=== PATIENT | female | born 1980 | race African-American/Black ===

== ENCOUNTER → 2017-07-18 | Outpatient (CLI) | payer OTHER | END | disposition home or self-care (01) | LOC: KCIC 10:50 | DX: M25.561 Pain in right knee (principal) | CPT/HCPCS: 73562 ==

== ENCOUNTER 2017-09-19 12:48 | Emergency (ER) | payer OTHER ==
[2017-09-19 13:43] LABS: URINE HCG POC HCG NEGATIVE (Negative)
[2017-09-19 13:49] LABS: BILIRUBIN,URINE NEGATIVE (NEG); CLARITY,URINE CLEAR; COLOR,URINE YELLOW; GLUCOSE,URINE NEGATIVE (NEG); NITRITE,URINE NEGATIVE (NEG); PH,URINE 6.5; PROTEIN,URINE NEGATIVE (NEG-TRACE)
[2017-09-19 14:03] LABS: RBC,URINE OCC /HPF (0-2); WBC,URINE RARE /HPF (0-4)
[2017-09-19 14:04] LABS: BACTERIA,URINE FEW /HPF (0-FEW); SQUAMOUS EPITHELIAL CELL,UR FEW /LPF
== END 2017-09-19 14:20 | disposition home or self-care (01) ==
LOC: ER 12:48
DX: M54.5 Low back pain (principal); I10 Essential (primary) hypertension; Z98.890 Other specified postprocedural states
CPT/HCPCS: 81001; 81025; 99283

== ENCOUNTER 2018-04-03 18:26 | Emergency (ER) | payer BC, OTHER ==
[~2018-04-03] VITALS: Ht 172.7 cm; Wt 104.3 kg
[~2018-04-03 18:26] MED LIST: CYCL10TA2 PO; LABE100T5 PO; PRED1TAB3 PO
[2018-04-03 18:44] VITALS: BP 138/79
[2018-04-03] MEDS ORDERED: IBUP-1060 PO (19:06)
[2018-04-03] MEDS ORDERED: CYCL10TA2 PO (19:06)
--- NOTE | 2018-04-03 19:07 | PHYS DOC ---
Past Medical History Past Medical History: Hypertension Additional Past Medical Histor: THYROID MASS Past Surgical History: Alcohol Use: Occasionally Drug Use: None Adult General Chief Complaint Chief Complaint: BACK PAIN OR INJURY HPI HPI Patient is a 37 year old AA female who presents to the emergency room with complaints of left hip and left low back pain after a fall that occurred 6 days ago after she slipped on some ice. Patient denies any decreased range of motion , numbness, tingling, or weakness of the affected extremity. She states that the pain sometimes shoots down her leg. She denies any saddle anesthesia, loss of bowel or bladder control. Her pain is a 7/10 on the pain scale. She has been taking ibuprofen at home with little relief. Review of Systems Review of Systems Constitutional: Denies fever or chills [] GI: Denies abdominal pain, nausea, vomiting, or saddle anesthesia : Denies dysuria or hematuria [] Musculoskeletal: See HPI Integument: Denies rash or skin lesions [] Neurologic: Denies headache, focal weakness or sensory changes [] Allergies Allergies Allergies Coded Allergies Type Severity Reaction Last Updated Verified No Known Drug Allergies 03/04/13 No Physical Exam Physical Exam Constitutional: Well developed, well nourished, no acute distress, non-toxic appearance, obese. [] HENT: Normocephalic, atraumatic, bilateral external ears normal, nose normal. [] Eyes: conjunctiva normal, no discharge. [] Neck: Normal range of motion, no stridor. [] Skin: Warm, dry, no erythema, no rash; fading bruise noted to left lateral thigh 10 cm in diameter [] Back: No bony tenderness,L lumbar paraspinal tenderness, increased pain with straight leg lift of LLE Extremities: No tenderness, no cyanosis, no clubbing, ROM intact, no edema. [] Neurologic: Alert and oriented X 3, normal motor function, normal sensory function, no focal deficits noted. [] Psychologic: Affect normal, judgement normal, mood normal. [] Current Patient Data Vital Signs Vital Signs Date Time Temp Pulse Resp B/P (MAP) Pulse Ox O2 Delivery O2 Flow Rate FiO2 04/03/18 18:44 98.1 66 16 138/79 (98) 100 Room Air 98.1 EKG EKG [] Radiology/Procedures Radiology/Procedures [] Course & Med Decision Making Course & Med Decision Making Pertinent Labs and Imaging studies reviewed. (See chart for details) [] Dragon Disclaimer Dragon Disclaimer This electronic medical record was generated, in whole or in part, using a voice recognition dictation system. Departure Departure Impression: Primary Impression: Fall from slipping on ice Additional Impression: Left-sided low back pain with left-sided sciatica Disposition: HOME, SELF-CARE Condition: STABLE Referrals: Darwin FARMER MD (PCP) Patient Instructions: Sciatica, [id number] Additional Instructions: Fill prescription(s) and use as directed. Recommend application of ice, elevation, and rest of affected extremity. Activity as tolerated. Follow-up with your primary care doctor on as planned., Return to the ER if your symptoms worsen. Scripts Ibuprofen (IBUPROFEN) 800 Mg Tablet 800 MG PO PRN Q6HRS PRN for INFLAMMATION for 10 Days, #40 TAB 0 Refills Prov: JORGE VYAS APRN 04/03/18 Cyclobenzaprine Hcl (CYCLOBENZAPRINE HCL) 10 Mg Tablet 1 TAB PO TID PRN for PAIN for 10 Days, #30 TAB 0 Refills Prov: JORGE VYAS APRN 04/03/18 Problem Qualifiers Primary Impression: Fall from slipping on ice Encounter type: initial encounter Qualified Codes: W00.9XXA - Unspecified fall due to ice and snow, initial encounter Additional Impression: Left-sided low back pain with left-sided sciatica Chronicity: acute Qualified Codes: M54.42 - Lumbago with sciatica, left side JORGE VYAS APRN Apr 03, 2018 19:06
== END 2018-04-03 19:11 | disposition home or self-care (01) ==
LOC: ER 18:26
DX: M54.42 Lumbago with sciatica, left side (principal); I10 Essential (primary) hypertension; Z98.890 Other specified postprocedural states; W00.0XXA Fall on same level due to ice and snow, initial encounter; Y93.89 Activity, other specified; Y92.89 Other specified places as the place of occurrence of the external cause; Y99.8 Other external cause status
CPT/HCPCS: 99283

== ENCOUNTER → 2020-02-24 | Outpatient (CLI) | payer BC ==
[~2020-02-24] MED LIST changes: +IBUP-1060 PO; +MECL12.582 PO
== END ==
LOC: LAB 11:27
PROVIDERS: ATTEND Family Medicine
DX: E05.90 Thyrotoxicosis, unspecified without thyrotoxic crisis or storm (principal)
CPT/HCPCS: 36415; 84443

== ENCOUNTER 2020-03-04 11:55 | Emergency (ER) | payer BC ==
[~2020-03-04] VITALS: Ht 172.7 cm; Wt 109.0 kg
[~2020-03-04 11:55] MED LIST changes: -MECL12.582 PO
[2020-03-04] MEDS ORDERED: MECLIZINE HCL 12.5 MG TABLET. PO ONE (13:15)
[2020-03-04 13:19] LABS: BARBITURATES NEG (NEG); BENZODIAZEPINES NEG (NEG); CANNABINOIDS NEG (NEG); COCAINE NEG (NEG); METHADONE NEG (NEG); OPIATES NEG (NEG); PHENCYCLIDINE NEG (NEG)
[2020-03-04 13:20] LABS: AMPHETAMINE/METHAMPHETAMINE NEG (NEG)
[2020-03-04 13:46] LABS: BASO % 1 % (0-3); EOS # 0.1 x10^3/uL (0.0-0.7); EOS % 3 % (0-3); HEMATOCRIT 38.9 % (36.0-47.0); HEMOGLOBIN 13.3 g/dL (12.0-15.5); LYMPH # 1.3 x10^3/uL (1.0-4.8); LYMPH % 31 % (24-48); MEAN CORPUSCULAR HEMOGLOBIN 31 pg (25-35); MEAN CORPUSCULAR HGB CONC 34 g/dL (31-37); MEAN CORPUSCULAR VOLUME 91 fL (79-100); MONO # 0.3 x10^3/uL (0.0-1.1); MONO % 7 % (0-9); NEUT # 2.5 x10^3/uL (1.8-7.7); NEUT % 59 % (31-73); PLATELET COUNT 232 x10^3/uL (140-400); RED CELL DISTRIBUTION WIDTH 12.7 % (11.5-14.5); WHITE BLOOD COUNT 4.2 x10^3/uL (4.0-11.0)
[2020-03-04 13:51] LABS: CALCIUM 9.2 mg/dL (8.5-10.1); CREATININE 0.7 mg/dL (0.6-1.0); GFR 111.6; POTASSIUM 4.1 mmol/L (3.5-5.1)
--- NOTE | 2020-03-04 13:53 | RAD ---
CT HEAD INDICATION: Dizziness COMPARISON: None Available. Exposure: One or more of the following individualized dose reduction techniques were utilized for thi s examination: 1. Automated exposure control 2. Adjustment of the mA and/or kV according to patient size 3. Use of iterative reconstruction technique TECHNIQUE: 5 mm contiguous axial images were obtained from the skull base to the vertex in both bone and soft tissue algorithm. FINDINGS: No abnormal attenuation within the brain parenchyma. No evidence of acute intracranial hemorrhage. No extra-axial fluid collections. No mass effect or midline shift. Ventricular size is appropriate. Basal cisterns are patent. No fractures identified.Elder-white differentiation is preserved.Globes and orbits are within normal l imits. Paranasal sinuses and mastoid air cells are clear. IMPRESSION: Unremarkable CT examination of the head without contrast, as above. Specifically, no evidence of an acute intracranial abnormality. Electronically signed by: Kelby Steinberg MD (03/04/2020 1:50 PM) [id number]
[2020-03-04 13:56] LABS: ALBUMIN 3.6 g/dL (3.4-5.0); MAGNESIUM 2.1 mg/dL (1.8-2.4); TOTAL BILIRUBIN 0.6 mg/dL (0.2-1.0); TOTAL PROTEIN 7.2 g/dL (6.4-8.2)
--- NOTE | 2020-03-04 15:15 | RAD ---
XR CHEST 1V INDICATION: Reason: dizziness / Spl. Instructions: / History: . COMPARISON STUDY: None. FINDINGS: Lungs: Normal lung volume. No pulmonary mass or consolidation. The tracheobronchial tree and hilar st ructures are normal. Pleura: No pleural effusion or pneumothorax. Heart and Mediastinum: The cardiomediastinal silhouette is normal. The great vessels of the thorax ar e normal. Bones and Soft Tissues: The bones and soft tissues are within normal limits. IMPRESSION: No acute cardiopulmonary process. Electronically signed by: Rashid Mendoza MD (03/04/2020 3:13 PM) [id number]
[2020-03-04] MEDS ORDERED: MECL12.582 PO (16:04)
--- NOTE | 2020-03-04 16:04 | PHYS DOC ---
Past Medical History Past Medical History: Hypertension Additional Past Medical Histor: THYROID MASS Past Surgical History: Smoking Status: Never Smoker Alcohol Use: Occasionally Drug Use: None General Adult EDM: Chief Complaint: DIZZY/LIGHT HEADED HPI: HPI: Patient is a 39 year old female with history of hypertension, vertigo, who presents to the ED today complaining of intermittent episodes of ringing in bilateral ears as well as dizziness whenever she stands up fast from sitting or laying down position symptoms have been on and off for 3 weeks. He states he has had similar symptoms when she had vertigo. Denies any chest pain. Review of Systems: Review of Systems: Constitutional: Denies fever or chills. [] Eyes: Denies change in visual acuity. [] HENT: Reports ringing in ears denies nasal congestion or sore throat. [] Respiratory: Denies cough or shortness of breath. [] Cardiovascular: Denies chest pain or edema. [] GI: Denies abdominal pain, nausea, vomiting, bloody stools or diarrhea. [] : Denies dysuria. [] Musculoskeletal: Denies back pain or joint pain. [] Integument: Denies rash. [] Neurologic: Reports dizziness, denies headache, focal weakness or sensory changes. [] Psychiatric: Denies depression or anxiety. [] Heart Score: Risk Factors: Risk Factors: DM, Current or recent (<one month) smoker, HTN, HLP, family his tory of CAD, obesity. Risk Scores: Score 0 - 3: 2.5% MACE over next 6 weeks - Discharge Home Score 4 - 6: 20.3% MACE over next 6 weeks - Admit for Clinical Observation Score 7 - 10: 72.7% MACE over next 6 weeks - Early Invasive Strategies Current Medications: Current Medications Medications (Trade) Dose Ordered Sig/Benedict Start Time Stop Time Status Last Admin Dose Admin Meclizine HCl (Antivert) 12.5 mg 1X ONCE 03/04/20 13:15 03/04/20 13:16 DC 03/04/20 13:49 12.5 MG Allergies: Allergies: Allergies Coded Allergies Type Severity Reaction Last Updated Verified No Known Drug Allergies 03/04/13 No Physical Exam: PE: Constitutional: Well developed, well nourished, no acute distress, non-toxic appearance. [] HENT: Normocephalic, atraumatic, bilateral external ears normal, oropharynx moist, no oral exudates, nose normal. [] Eyes: PERRLA, EOMI, conjunctiva normal, no discharge. [] Neck: Normal range of motion, no tenderness, supple, no stridor. [] Cardiovascular:Heart rate regular rhythm, no murmur [] Lungs & Thorax: Bilateral breath sounds clear to auscultation [] Abdomen: Bowel sounds normal, soft, no tenderness, no masses, no pulsatile masses. [] Skin: Warm, dry, no erythema, no rash. [] Back: No tenderness, no CVA tenderness. [] Extremities: No tenderness, no cyanosis, no clubbing, ROM intact, no edema. [] Neurologic: Alert and oriented X 3, normal motor function, normal sensory function, no focal deficits noted. Cranial nerves II through XII intact Psychologic: Affect normal, judgement normal, mood normal. [] Current Patient Data: Labs: Laboratory Tests Test 03/04/20 12:40 03/04/20 12:41 03/04/20 13:30 Urine Opiates Screen Neg (NEG) Urine Methadone Screen Neg (NEG) Urine Barbiturates Neg (NEG) Urine Phencyclidine Screen Neg (NEG) Urine Amphetamine/Methamphetamine Neg (NEG) Urine Benzodiazepines Screen Neg (NEG) Urine Cocaine Screen Neg (NEG) Urine Cannabinoids Screen Neg (NEG) Urine Ethyl Alcohol Neg (NEG) POC Urine HCG, Qualitative Hcg negative (Negative) White Blood Count 4.2 x10^3/uL (4.0-11.0) Red Blood Count 4.30 x10^6/uL (3.50-5.40) Hemoglobin 13.3 g/dL (12.0-15.5) Hematocrit 38.9 % (36.0-47.0) Mean Corpuscular Volume 91 fL (79-100) Mean Corpuscular Hemoglobin 31 pg (25-35) Mean Corpuscular Hemoglobin Concent 34 g/dL (31-37) Red Cell Distribution Width 12.7 % (11.5-14.5) Platelet Count 232 x10^3/uL (140-400) Neutrophils (%) (Auto) 59 % (31-73) Lymphocytes (%) (Auto) 31 % (24-48) Monocytes (%) (Auto) 7 % (0-9) Eosinophils (%) (Auto) 3 % (0-3) Basophils (%) (Auto) 1 % (0-3) Neutrophils # (Auto) 2.5 x10^3/uL (1.8-7.7) Lymphocytes # (Auto) 1.3 x10^3/uL (1.0-4.8) Monocytes # (Auto) 0.3 x10^3/uL (0.0-1.1) Eosinophils # (Auto) 0.1 x10^3/uL (0.0-0.7) Basophils # (Auto) 0.0 x10^3/uL (0.0-0.2) Sodium Level 137 mmol/L (136-145) Potassium Level 4.1 mmol/L (3.5-5.1) Chloride Level 104 mmol/L (98-107) Carbon Dioxide Level 25 mmol/L (21-32) Anion Gap 8 (6-14) Blood Urea Nitrogen 13 mg/dL (7-20) Creatinine 0.7 mg/dL (0.6-1.0) Estimated GFR (Cockcroft-Gault) 111.6 BUN/Creatinine Ratio 19 (6-20) Glucose Level 102 mg/dL (70-99) H Calcium Level 9.2 mg/dL (8.5-10.1) Magnesium Level 2.1 mg/dL (1.8-2.4) Total Bilirubin 0.6 mg/dL (0.2-1.0) Aspartate Amino Transferase (AST) 17 U/L (15-37) Alanine Aminotransferase (ALT) 21 U/L (14-59) Alkaline Phosphatase 70 U/L (46-116) Troponin I Quantitative < 0.017 ng/mL (0.000-0.055) RK-Xsx-P-Type Natriuretic Peptide 27 pg/mL (0-124) Total Protein 7.2 g/dL (6.4-8.2) Albumin 3.6 g/dL (3.4-5.0) Albumin/Globulin Ratio 1.0 (1.0-1.7) Thyroid Stimulating Hormone (TSH) 0.095 uIU/mL (0.358-3.74) L Laboratory Tests 03/04/20 13:30 Laboratory Tests 03/04/20 13:30 Vital Signs: Vital Signs Date Time Temp Pulse Resp B/P (MAP) Pulse Ox O2 Delivery O2 Flow Rate FiO2 03/04/20 12:18 98.5 102 20 99 98.5 EKG: EK interpreted by Dr. Bran sinus rhythm heart rate 88 [] Radiology/Procedures: Radiology/Procedures: []PATIENT: BOBBY LEROY: [id number]#: [id number] : 1980 LOCATION: ER AGE: 39 SEX: F EXAM STATUS: REG ER ORD. PHYSICIAN: CARLOTA FUENTES APRN REASON: dizziness PROCEDURE: CT HEAD WO CONTRAST CT HEAD INDICATION: Dizziness COMPARISON: None Available. Exposure: One or more of the following individualized dose reduction techniques were utilized for this examination: 1. Automated exposure control 2. Adjustment of the mA and/or kV according to patient size 3. Use of iterative reconstruction technique TECHNIQUE: 5 mm contiguous axial images were obtained from the skull base to the vertex in both bone and soft tissue algorithm. FINDINGS: No abnormal attenuation within the brain parenchyma. No evidence of acute intracranial hemorrhage. No extra-axial fluid collections. No mass effect or midline shift. Ventricular size is appropriate. Basal cisterns are patent. No fractures identified.Elder-white differentiation is preserved.Globes and orbits are within normal limits. Paranasal sinuses and mastoid air cells are clear. IMPRESSION: Unremarkable CT examination of the head without contrast, as above. Specifically, no evidence of an acute intracranial abnormality. Electronically signed by: Kelby Steinberg MD (03/04/2020 1:50 PM) [id number] DICTATED and SIGNED BY: KELBY STEINBERG MD DATE: 03/04/20 [id number] PATIENT: BOBBY LEROY: [id number] : 1980 LOCATION: ER AGE: 39 SEX: F EXAM STATUS: REG ER ORD. PHYSICIAN: CARLOTA FUENTES APRN REASON: dizziness PROCEDURE: PORTABLE CHEST 1V XR CHEST 1V INDICATION: Reason: dizziness / Spl. Instructions: / History: . COMPARISON STUDY: None. FINDINGS: Lungs: Normal lung volume. No pulmonary mass or consolidation. The tracheobronchial tree and hilar structures are normal. Pleura: No pleural effusion or pneumothorax. Heart and Mediastinum: The cardiomediastinal silhouette is normal. The great vessels of the thorax are normal. Bones and Soft Tissues: The bones and soft tissues are within normal limits. IMPRESSION: No acute cardiopulmonary process. Electronically signed by: Amrit Ness MD (03/04/2020 3:13 PM) [id number] DICTATED and SIGNED BY: AMRIT NESS MD DATE: 03/04/20 [id number] Course & Med Decision Making: Course & Med Decision Making Pertinent Labs and Imaging studies reviewed. (See chart for details) This is a 39-year-old female patient presented to the ED today complaining of ringing in her ears and dizziness when she gets up quickly from sitting or laying down position. Symptoms for 3 weeks intermittently. Has had similar symptoms with the vertigo. EKG is negative, CT of the head is negative, chest x-ray is negative, CBC CMP with no acute findings. UA is negative. Discharge to home with meclizine. Follow-up with PCP or neurologist in the course of this week. Dragon Disclaimer: Dragon Disclaimer: This electronic medical record was generated, in whole or in part, using a voice recognition dictation system. Departure Departure Impression: Primary Impression: Tinnitus Qualified Codes: H93.13 - Tinnitus, bilateral Additional Impression: Vertigo Disposition: 01 DC HOME SELF CARE/HOMELESS Condition: STABLE Referrals: Darwin FARMER MD (PCP) followup in 1-2 weeks Patient Instructions: Tinnitus, Vertigo, [id number] Additional Instructions: You were evaluated in the emergency room for vertigo and tinnitus, please follow-up with your primary care doctor in 1 week. Change positions slowly. Come back to the ED at any point symptoms worsen Scripts Meclizine Hcl (MECLIZINE HCL) 12.5 Mg Tablet 1 TAB PO TID, #30 TAB Prov: CARLOTA FUENTES TEGAN 03/04/20 ALFREDOCARLOTA TEGAN Mar 04, 2020 16:04
[2020-03-04 16:25] VITALS: BP 137/89
== END 2020-03-04 16:28 | disposition home or self-care (01) ==
LOC: ER 11:55
DX: H93.13 Tinnitus, bilateral (principal); R42 Dizziness and giddiness; I10 Essential (primary) hypertension; Z98.890 Other specified postprocedural states
CPT/HCPCS: 36415; 70450; 71045; 80053; 80307; 81025; 83735; 83880; 84443; 84484; 85025; 93005; 99285; J8597

== ENCOUNTER → 2020-04-23 | Outpatient (CLI) | payer BC ==
[~2020-04-23] MED LIST changes: +MECL12.582 PO
== END ==
LOC: LAB 11:07
PROVIDERS: ATTEND Family Medicine
DX: E05.90 Thyrotoxicosis, unspecified without thyrotoxic crisis or storm (principal)
CPT/HCPCS: 36415; 84443